=== PATIENT | male | born 1970 | race Caucasian/White ===

== ENCOUNTER 2017-09-28 16:01 | Emergency (ER) | payer OTHER ==
[~2017-09-28] VITALS: Ht 165.1 cm; Wt 73.9 kg
[2017-09-28 16:08] VITALS: Ht 165.1 cm; Wt 73.9 kg
[2017-09-28 17:44] VITALS: BP 130/85
== END 2017-09-28 17:44 | disposition home or self-care (01) ==
LOC: ED 16:01
DX: S63.502A Unspecified sprain of left wrist, initial encounter (principal); S59.912A Unspecified injury of left forearm, initial encounter; W01.0XXA Fall on same level from slipping, tripping and stumbling without subsequent striking against object, initial encounter; Y93.66 Activity, soccer; Y92.89 Other specified places as the place of occurrence of the external cause; Y99.8 Other external cause status

== ENCOUNTER 2019-12-24 23:47 | Emergency (ER) | payer OTHER ==
[~2019-12-24] VITALS: Ht 170.2 cm; Wt 69.5 kg
[2019-12-24 23:54] VITALS: Ht 170.2 cm; Wt 69.5 kg
[2019-12-25 04:44] VITALS: BP 132/97
== END 2019-12-25 04:44 | disposition home or self-care (01) ==
LOC: ED 23:47
DX: H81.391 Other peripheral vertigo, right ear (principal)